=== PATIENT | male | born 1990 | race Caucasian/White ===

== ENCOUNTER 2019-07-11 23:12 | Emergency (ER) | payer SELFPAY ==
--- NOTE | 2019-07-12 00:04 | ER Document Report ---
ED General - General Chief Complaint: Altered Mental Status Stated Complaint: ALTERED MENTAL STATUS Time Seen by Provider: 07/11/19 23:55 TRAVEL OUTSIDE OF THE [place] IN LAST 30 DAYS: No - HPI Notes: Patient is a 29-year-old male brought into the emergency department for evaluation. Evidently he was found with altered mental status, and a neighbor's driveway. The patient admits to me that he was huffing fuel injector millstone cleaner. He states he is been doing this since he was 14. He never ended up unresp onsive. He denies use of other drugs, no alcohol. Denies any suicidal or homicidal ideation. No visual or auditory hallucination. He states he is very embarrassed at this time. He denies any pain, no other issues. - Related Data Home Medications: None Past Medical History - General Information source: Patient - Social History Smoking Status: Current Every Day Smoker Chew tobacco use (# tins/day): No Frequency of alcohol use: None Drug Abuse: Marijuana Family History: Reviewed & Not Pertinent Patient has suicidal ideation: No Patient has homicidal ideation: No Review of Systems - Review of Systems Constitutional: No symptoms reported EENT: No symptoms reported Cardiovascular: No symptoms reported Respiratory: No symptoms reported Gastrointestinal: No symptoms reported Genitourinary: No symptoms reported Musculoskeletal: No symptoms reported Skin: No symptoms reported Neurological/Psychological: See HPI Physical Exam - Vital signs Vitals: Temp Pulse Resp BP 97.7 F 68 16 98/50 L 07/11/19 23:12 07/11/19 23:12 07/11/19 23:12 07/11/19 23:12 - Notes Notes: Is a 29-year-old male who appears his stated age in no acute distress. He has good eye contact, appropriate and interactive with examiner. Vital signs reviewed, please refer to chart. Head is normocephalic, atraumatic. Pupils equal round, reactive to light. Neck is supple without meningismus. Heart is regular rate and rhythm. Lungs are clear to auscultation bilaterally. Abdomen is soft, nontender, normoactive bowel sounds throughout. Extremities without cyanosis, clubbing. Posterior calves are nontender. Peripheral pulses are equal. Skin is warm and dry. Patient is awake, alert, neurological exam is nonfocal. Course - Re-evaluation Re-evalutation: 07/12/19 00:03 Patient presents emergency department for evaluation. He was abusing an inhalant, it is here in the emergency department. We had a long discussion in regards to the significant damage that this can cause, he voiced understanding. His vital signs are unremarkable. Patient is calm and cooperative. We will do simple screening labs, and continue to monitor. 07/12/19 01:43 Poison control was contacted in regards to this patient. They asked that further laboratory investigations, including methanol level, magnesium, ABG, lactic acid, serum osmolarity be ordered. They also asked that the patient be administered Antizol every 12 hours until a negative methanol level was confirmed by [facility]. The patient is awake and alert. He is oriented x3. He has absolutely no acidosis or other significant laboratory investigation abnormalities with the exception of a positive drug screen for marijuana. He no longer appears to be directly under the influence of any sort of substance. He refuses that at this time. He states he does not feel he needs to be admitted. I do not believe he is exhibiting any findings that diminish his capacity, so will allow this patient to sign out AGAINST MEDICAL ADVICE. - Vital Signs Vital signs: Temp Pulse Resp BP Pulse Ox 97.7 F 68 16 98/50 L 07/11/19 23:12 07/11/19 23:12 07/11/19 23:12 07/11/19 23:12 - Laboratory Result Diagrams: 07/12/19 00:46 07/12/19 00:46 Laboratory results interpreted by me: 07/12/19 07/12/19 07/12/19 00:46 00:46 00:46 WBC 12.9 H RBC 5.87 H Hgb 17.5 H Hct 51.2 H Absolute Neuts (auto) 9.7 H Urine Ketones TRACE H Salicylates < 1.0 L Acetaminophen < 10 L - EKG Interpretation by Me Additional EKG results interpreted by me: 07/12/19 01:46 Sinus mechanism with a rate of 60 bpm. Normal axis and intervals, no acute ST changes concerning for ischemia or infarction Discharge - Discharge Clinical Impression: Inhalant abuse, Marijuana abuse Condition: Stable Disposition: AGAINST MEDICAL ADVICE Instructions: Inhalant Abuse ([facility]) Additional Instructions: Further testing and treatment was recommended by poison control. You have elected to leave AGAINST MEDICAL ADVICE and not have further testing performed. If you develop worsening or new concerning symptoms of any sort, return immediately to the emergency department for evaluation. Otherwise, it is strongly advised that you stop using drugs of any sort. Follow-up with primary care this week.
[2019-07-12 01:12] LABS: ABSOLUTE BASOPHILS # (AUTO) 0.1 10^3/uL (0.0-0.2); ABSOLUTE EOSINOPHILS # (AUTO) 0.1 10^3/uL (0.0-0.6); ABSOLUTE LYMPHOCYTES (AUTO) 2.5 10^3/uL (0.5-4.7); ABSOLUTE MONOCYTES (AUTO) 0.6 10^3/uL (0.1-1.4); ABSOLUTE NEUT (AUTO) 9.7 10^3/uL (1.7-8.2); BASOPHILS % (AUTO) 0.4 % (0-2); HEMATOCRIT 51.2 % (37.9-51.0); HEMOGLOBIN 17.5 g/dL (13.5-17.0); LYMPHOCYTES % (AUTO) 19.5 % (13-45); MEAN CORPUSCULAR HEMOGLOBIN 29.7 pg (27.0-33.4); MEAN CORPUSCULAR HGB CONC 34.1 g/dL (32.0-36.0); MEAN CORPUSCULAR VOLUME 87 fl (80-97); MONOCYTES % (AUTO) 4.4 % (3-13); PLATELET COUNT 197 10^3/uL (150-450); RED BLOOD COUNT 5.87 10^6/uL (4.35-5.55); RED CELL DISTRIBUTION WIDTH 13.1 % (11.5-14.0); SEGMENTED NEUTROPHILS % (AUTO) 74.7 % (42-78); TOTAL CELLS COUNTED % (AUTO) 100 %; WHITE BLOOD COUNT 12.9 10^3/uL (4.0-10.5)
[2019-07-12 01:24] LABS: ALBUMIN 4.3 g/dL (3.5-5.0); ALKALINE PHOSPHATASE 63 U/L (38-126); ANION GAP 9 (5-19); ASPARTATE AMINO TRANSFERASE 25 U/L (17-59); BILIRUBIN,DIRECT 0.1 mg/dL (0.0-0.4); BILIRUBIN,TOTAL 0.4 mg/dL (0.2-1.3); BLOOD UREA NITROGEN 8 mg/dL (7-20); CALCIUM 9.3 mg/dL (8.4-10.2); CARBON DIOXIDE 27 mmol/L (22-30); CHLORIDE 106 mmol/L (98-107); GLUCOSE 87 mg/dL (75-110); POTASSIUM 4.5 mmol/L (3.6-5.0); TOTAL PROTEIN 6.7 g/dL (6.3-8.2)
[2019-07-12 01:25] LABS: ACETAMINOPHEN < 10 ug/mL (10-30); ALCOHOL < 10 mg/dL (NONE DETECTED); SALICYLATE < 1.0 mg/dL (2.0-20.0)
[2019-07-12 01:31] LABS: APPEARANCE,URINE CLEAR; BILIRUBIN,URINE NEGATIVE (NEGATIVE); COLOR,URINE YELLOW; GLUCOSE, URINE NEGATIVE (NEGATIVE); KETONES,URINE TRACE mg/dL (NEGATIVE); LEUKOCYTE ESTERASE,URINE NEGATIVE (NEGATIVE); NITRITE,URINE NEGATIVE (NEGATIVE); PROTEIN,URINE NEGATIVE (NEGATIVE); UROBILINOGEN,URINE NEGATIVE mg/dL (<2.0)
[2019-07-12 01:43] LABS: URINE AMPHETAMINES SCREEN NEGATIVE; URINE BARBITURATES SCREEN NEGATIVE; URINE BENZODIAZEPINES SCREEN NEGATIVE; URINE COCAINE SCREEN NEGATIVE; URINE MARIJUANA (THC) SCREEN UNCONFIRMED POSITIVE; URINE METHADONE SCREEN NEGATIVE; URINE PHENCYCLIDINE SCREEN NEGATIVE
[2019-07-12 02:37] VITALS: BP 100/55
--- NOTE | 2019-07-12 09:34 | EKG REPORT ---
SEVERITY:- NORMAL ECG - SINUS RHYTHM : Confirmed by: Teodora Chino MD 12-Jul-2019 09:33:24
== END 2019-07-12 02:40 | disposition left against medical advice (07) ==
LOC: ER 23:12
DX: F18.10 Inhalant abuse, uncomplicated (principal); F12.10 Cannabis abuse, uncomplicated; R41.82 Altered mental status, unspecified; F17.200 Nicotine dependence, unspecified, uncomplicated
CPT/HCPCS: 36415; 80053; 80307; 81001; 85025; 93005; 93010; 99285